=== PATIENT | female | born 1995 | race Caucasian/White ===

== ENCOUNTER 2018-05-14 20:54 | Emergency (ER) | payer BC, OTHER ==
[2018-05-14 21:21] VITALS: TEMP 98.2; BMI 25.7
--- NOTE | 2018-05-14 21:22 | PDOC ---
Rapid Medical Evaluation Chief Complaint: Cold Symptoms Time Seen by Provider: 05/14/18 21:17 Medical Evaluation: 05/14/18 21:20 pt c/o: cough with nasal congestion, cough worse at night, on cefdinir and flonase with mod improvement of nasal secretions Pt on brief exam: -frontal maxillary sinus tenderness, noted dry hacking cough Pt ordered for: none pt to proceed to the ED Discharge Disposition - Diagnosis Cough - Referrals Referrals: Ignacio Rivera MD [Primary Care Provider] - - Patient Instructions - Post Discharge Activity
[2018-05-14] MEDS ORDERED: ALBUTEROL SO4 2.5/IPRATROPIUM 0.5 INH SOL 3 ML VIAL.NEB. NEB ONE ×4 (21:49→23:24)
--- NOTE | 2018-05-14 22:26 | PDOC ---
History of Present Illness - General Chief Complaint: Cold Symptoms Stated Complaint: COLD SYMPTOMS Time Seen by Provider: 05/14/18 21:17 History Source: Patient Exam Limitations: No Limitations Past History - Past Medical History Allergies/Adverse Reactions: Allergies Allergy/AdvReac Type Severity Reaction Status Date / Time No Known Allergies Allergy Verified 05/14/18 21:21 Home Medications: Ambulatory Orders Albuterol Sulfate Inhaler - [Ventolin HFA Inhaler -] 1 - 2 inh PO Q4H PRN #1 inhaler 05/14/18 COPD: No - Suicide/Smoking/Psychosocial Hx Smoking History: Never smoked Have you smoked in the past 12 months: No Information on smoking cessation initiated: No Hx Alcohol Use: No Drug/Substance Use Hx: No *Physical Exam - Vital Signs Last Vital Signs Temp Pulse Resp BP Pulse Ox 98.2 F 102 H 18 141/95 98 05/14/18 21:19 05/14/18 21:19 05/14/18 21:19 05/14/18 21:19 05/14/18 21:19 - Physical Exam General Appearance: No: Apparent Distress HEENT: positive: Nasal Congestion (Mild along L nare). negative: Muffled/ Hoarse voice, Pharyngeal Erythema, Tonsillar Exudate, Rhinorrhea, Sinus Tenderness, Excessive drooling Respiratory/Chest: positive: Lungs Clear, Normal Breath Sounds. negative: Respiratory Distress, Accessory Muscle Use Cardiovascular: positive: Regular Rhythm, Regular Rate, S1, S2. negative: Murmur Gastrointestinal/Abdominal: positive: Normal Bowel Sounds, Soft. negative: Tender, Distended, Guarding, Rebound Extremity: negative: Swelling Integumentary: positive: Normal Color Neurologic: positive: Alert, Normal Mood/Affect Moderate Sedation - Procedure Monitoring Vital Signs: Procedure Monitoring Vital Signs Temperature 98.2 F 05/14/18 21:19 Pulse Rate 102 H 05/14/18 21:19 Respiratory Rate 18 05/14/18 21:19 Blood Pressure 141/95 05/14/18 21:19 O2 Sat by Pulse Oximetry (%) 98 05/14/18 21:19 ED Treatment Course - Medications Given in the ED: ED Medications Discontinued Medications Generic Name Dose Route Start Last Admin Trade Name Freq PRN Reason Stop Dose Admin Albuterol/Ipratropium 1 amp 05/14/18 21:49 05/14/18 22:13 Duoneb - NEB 05/14/18 21:50 1 amp ONCE ONE Administration Medical Decision Making - Medical Decision Making 23 y/o F with no sig pmh presents with mostly dry cough (occasionally with clear phlegm), nasal congestion, sneezing since 3 days ago. Also mentions noting occasional SOB and chest tightness. Saw her PCP 2 days ago, who prescribed her Flonase without relief. Saw him again yesterday and was prescribed Cefdinir, also which did not help much. Has been using humdifier which helps at night. Has also tried several OTC meds for cough (like Theraflu, Advil cold and sinus) which were not helping. Denies fever, rhinorrhea, abd pain , n/v, recent travel, sick contacts. Likely viral syndrome; consider bronchitis though lungs clear Will try trial of duoneb x 1 and reassess 05/14/18 22:23 Patient reports slight improvement in sxs with duoneb x2 Will discharge on Albuterol inhaler prn Stable for d/c 05/14/18 23:48 *DC/Admit/Observation/Transfer Diagnosis at time of Disposition: Bronchitis, Viral syndrome - Discharge Dispostion Disposition: HOME Condition at time of disposition: Stable Decision to Admit order: No - Prescriptions Prescriptions: Albuterol Sulfate Inhaler - [Ventolin HFA Inhaler -] 1 - 2 inh PO Q4H PRN #1 inhaler PRN Reason: Shortness Of Breath - Referrals Referrals: Ignacio Rivera MD [Primary Care Provider] - 3 days - Patient Instructions Printed Discharge Instructions: DI for Acute Bronchitis Additional Instructions: Thank you for choosing [facility]. It was a pleasure taking care of you. It is likely your symptoms are due to viral syndrome with possible bronchitis Take Albuterol inhaler as needed to help with shortness of breath. Continue supportive care including saline nasal spray, nedi-pot, humidifier to help with congestion. Return to the Emergency Department if your symptoms worsen or persist, you have fever, shortness of breath, chest pain, severe abdominal pain, vomiting or other concerning symptoms. - Post Discharge Activity
[2018-05-15 00:01] VITALS: BP 120/79; PULSE 88
== END 2018-05-15 00:04 | disposition home or self-care (01) ==
LOC: JER 20:54
PROC: 3E0F7GC Introduction of Other Therapeutic Substance into Respiratory Tract, Via Natural or Artificial Opening (ICD-10-PCS; principal; 2018-05-14)
PROC: 3E0F7GC Introduction of Other Therapeutic Substance into Respiratory Tract, Via Natural or Artificial Opening (ICD-10-PCS; 2018-05-14)
DX: J40 Bronchitis, not specified as acute or chronic (principal); B34.9 Viral infection, unspecified
CPT/HCPCS: 99281-25